=== PATIENT | male | born 2000 | race Caucasian/White ===

== ENCOUNTER 2023-07-13 01:53 | Emergency (ER) | payer OTHER ==
[~2023-07-13] VITALS: Ht 188 cm; Wt 91.9 kg
[2023-07-13 02:55] LABS: HEMOGLOBIN 18.4 g/dl (13.5-17.5); MEAN CORPUSCULAR HEMOGLOBIN 31.2 pg (27.0-33.0); MEAN CORPUSCULAR HGB CONC 34.7 g/dl (32.0-36.5); PLATELET COUNT, AUTOMATED 182 10^3/uL (150-450); RED BLOOD COUNT 5.89 10^6/uL (4.30-6.10); WHITE BLOOD COUNT 10.1 10^3/uL (4.0-10.0)
[2023-07-13 03:04] LABS: RSV AMPLIFICATION NEGATIVE (NEGATIVE)
[2023-07-13 03:20] LABS: BLOOD UREA NITROGEN 11 MG/DL (9-23); CALCIUM LEVEL 8.9 MG/DL (8.5-10.1); CARBON DIOXIDE LEVEL 31 MMOL/L (20-31); CHLORIDE LEVEL 100 MMOL/L (98-107); CREATININE FOR GFR 1.21 MG/DL (0.70-1.30); GLOMERULAR FILTRATION RATE > 60.0 (>60); GLUCOSE, FASTING 86 MG/DL (60-100); POTASSIUM SERUM 4.6 MMOL/L (3.5-5.1); SODIUM LEVEL 136 MMOL/L (136-145)
[2023-07-13 03:28] LABS: ATYPICAL LYMPH 15 % (0-5); EOSINOPHILS 1 % (0-3); LYMPHOCYTES 5 % (16-44); MONOCYTES 3 % (0-5); NEUTROPHILS 73 % (28-66); PLATELET ESTIMATE NORMAL (NORMAL)
[2023-07-13] MEDS ORDERED: NS 1,000 ML IV ONE (09:00)
[2023-07-13 09:12] LABS: MONO REFLEX EBV COMP NEGATIVE (NEGATIVE)
[2023-07-13 10:22] LABS: ALBUMIN 3.6 G/DL (3.2-5.2); BILIRUBIN,DIRECT 0.5 MG/DL (<0.4); BILIRUBIN,TOTAL 1.3 MG/DL (0.3-1.2); TOTAL PROTEIN 5.9 G/DL (5.7-8.2)
[2023-07-13 11:25] VITALS: BP 123/60; TEMP 96.9; O2SAT 100
[2023-07-13] MEDS ORDERED: ONDA4TAB6 PO (11:26)
[2023-07-13] MEDS ORDERED: DIPH-435 PO (11:26)
[2023-07-14 16:08] LABS: EBV AB TO NUCLEAR ANTIGEN <18.0 U/mL (0.0-17.9); EBV VIRAL CAPSID AG IgG <18.0 U/mL (0.0-17.9); EBV VIRAL CAPSID AG IgM <36.0 U/mL (0.0-35.9)
== END 2023-07-13 11:37 | disposition home or self-care (01) ==
LOC: M ED 01:53
DX: R55 Syncope and collapse (principal); R11.10 Vomiting, unspecified; R21 Rash and other nonspecific skin eruption